=== PATIENT | male | born 1965 | race Caucasian/White ===

== ENCOUNTER 2024-05-21 12:50 | Emergency (ER) | payer MEDICAID ==
[~2024-05-21] VITALS: Ht 180.3 cm; Wt 107.0 kg
[2024-05-21 12:59] VITALS: O2SAT 96
[2024-05-21] MEDS ORDERED: LIDOCAINE HCL/PF 1% 10 MG/ML 5ML VIAL INFIL ONE (14:15)
[2024-05-21 15:02] LABS: BASOPHILS % 1.2 % (0.0-2.0); EOSINOPHILS % 6.2 % (0.0-5.0); HEMATOCRIT. 44.7 % (42.0-52.0); HEMOGLOBIN. 15.3 g/dL (14.0-18.0); MEAN CORPUSCULAR HEMOGLOBIN 30.9 pg (28.0-32.0); MEAN CORPUSCULAR HGB CONC 34.3 g/dL (31.0-37.0); MEAN CORPUSCULAR VOLUME 90.3 fL (80.0-94.0); MEAN PLATELET VOLUME 7.8 fl (7.4-10.4); NEUTROPHILS % 61.6 % (40.0-76.0); PLATELET 254 x1000/uL (130-400); RED BLOOD CELL COUNT 4.95 mill/uL (4.7-6.1); RED CELL DISTRIBUTION WIDTH 13.5 % (11.6-14.6); WHITE BLOOD COUNT 6.4 x1000/uL (4.5-11.0)
[2024-05-21 15:08] LABS: CHLORIDE 103 mEq/L (98-107); POTASSIUM 4.4 mEq/L (3.5-5.1); SODIUM 138 mEq/L (136-145)
[2024-05-21 15:09] LABS: CALCIUM 9.2 mg/dL (8.7-10.4); CARBON DIOXIDE 30 mEq/L (21-32)
[2024-05-21 15:14] LABS: GLUCOSE 139 mg/dL (70-105); UREA NITROGEN BLOOD 9 mg/dL (9-23)
[2024-05-21] MEDS ORDERED: SULF1TAB48 MT (15:27)
[2024-05-21] MEDS ORDERED: CEPH500T MT (15:27)
[2024-05-21 15:52] VITALS: BP 193/139; PULSE 64; RESP 18; TEMP 36.9; O2SAT 100
[2024-05-21] MEDS: BACITRACIN ZINC OINT UDPKT TOP ONE (15:53)
== END 2024-05-21 15:53 | disposition home or self-care (01) ==
LOC: ER 12:50
DX: N61.1 Abscess of the breast and nipple (principal); I49.9 Cardiac arrhythmia, unspecified
CPT/HCPCS: 80048; 85025; 36415; 93005; 10060; 99284; Z7610 ×4

== ENCOUNTER 2024-10-23 18:34 | Emergency (ER) | payer MEDICAID ==
[~2024-10-23] VITALS: Ht 175.3 cm; Wt 114.0 kg
[~2024-10-23 18:34] MED LIST: CEPH500T MT; SULF1TAB48 MT
[2024-10-23 18:42] VITALS: O2SAT 76
[2024-10-23] MEDS ORDERED: MUPI1OIN4 TP (21:52)
[2024-10-23] MEDS ORDERED: SULF1TAB48 MT (21:52)
[2024-10-23] MEDS ORDERED: IBUP-2029 MT (21:52)
[2024-10-23] MEDS ORDERED: CEPH500C2 MT (21:52)
[2024-10-23] MEDS: CEPHALEXIN 250MG CAPSULE PO ONE (22:18)
[2024-10-23] MEDS: SULFAMETHOXAZOLE/TRIMETHOPRIM 800/160MG TABLET PO ONE (22:19)
[2024-10-23] MEDS: TETANUS, DIPHTHERIA, PERTUSSIS VAC/PF 0.5ML (>10YR OLD) IM ONE (22:20)
[2024-10-23 22:28] VITALS: BP 157/100; PULSE 60; RESP 16; TEMP 37.2; O2SAT 98
== END 2024-10-23 22:29 | disposition home or self-care (01) ==
LOC: ER 18:34
DX: L03.031 Cellulitis of right toe (principal); Z98.890 Other specified postprocedural states; Z79.899 Other long term (current) drug therapy
CPT/HCPCS: 90471; 90715; 99283